=== PATIENT | female | born 1985 | race Hispanic/Latino ===

== ENCOUNTER 2020-07-23 11:39 | Emergency (ER) | payer SELFPAY ==
[2020-07-23 15:48] LABS: Absolute Lymphocytes (CBC) 1.8 K/uL (0.7-4.9); Basophils % 1.2 % (0-1.3); Hematocrit 20.9 % (36.0-45.0); Lymphocytes % 34.3 % (15.3-44.8); MPV 9.1 fL (7.6-11.3); RBC Red Blood Cell Count 3.06 M/uL (3.86-4.86)
--- NOTE | 2020-07-23 15:56 | RAD REPORT ---
EXAM DESCRIPTION: US - Pelvis Complete - 07/23/2020 3:26 pm CLINICAL HISTORY: VAGINAL BLEEDING Pelvic pain. COMPARISON: No comparisons FINDINGS: The uterus appears enlarged measuring 13.5 x 8.5 cm. There is a large circumscribed mass s een in the fundal region of the uterus measuring 6.4 x 6.3 x 5.9 cm, likely representing a fibroid. The endometrial stripe is thin. Both ovaries are normal in size, shape and echotexture. The right ovary measures 3.3 x 2.8 x 2.0 cm. The left ovary measures 3.1 x 3.1 x 3.0 cm. No ovarian or parovarian lesions. No adnexal masses. Normal Doppler blood flow was demonstrated to both ovaries. No significant pelvic ascites. IMPRESSION: Large circumscribed 6.4 cm mass is seen in the fundal region the uterus suspected repres ent a large submucosal fibroid.
[2020-07-23 16:05] LABS: ALT/SGPT 24 U/L (12-78); AST/SGOT 14 U/L (15-37); Alkaline Phosphatase 67 U/L (45-117); BUN Blood Urea Nitrogen 9 mg/dL (7-18); Bicarbonate 24 mmol/L (21-32); Bilirubin Total 0.3 mg/dL (0.2-1.0); Glucose Level 80 mg/dL (74-106); Potassium 3.5 mmol/L (3.5-5.1); Sodium Level 142 mmol/L (136-145)
[2020-07-23 16:18] LABS: Blood Morphology Comment NOTED (NOT SEEN); Hypochromasia 1+; Platelet Estimate ADEQ; White Blood Cell Scan OK (OK)
[2020-07-23] MEDS ORDERED: NA CHLORIDE 0.9% 250 ML ONE (17:30)
[2020-07-23] MEDS ORDERED: Ringers Lactate 1,000 ML IV ONE (19:10)
--- NOTE | 2020-07-23 20:32 | ER ---
Nurse's Notes [facility] Name: Katie Osorio Age: 35 yrs Sex: Female : 1985 Arrival Date: 07/23/2020 Time: 11:44 Bed 13 Private MD: Diagnosis: Abnormal uterine and vaginal bleeding, unspecified;Anemia, unspecified Presentation: 07/23 12:00 Chief complaint: Sent by PCP for H\T\H 6.5/23.0. Pt c/o headache and dizziness x 1 week. hb Coronavirus screen: At this time, the client does not indicate any symptoms associated with coronavirus-19. Ebola Screen: No symptoms or risks identified at this time. Initial Sepsis Screen: Does the patient meet any 2 criteria? No. Patient's initial sepsis screen is negative. Does the patient have a suspected source of infection? No. Patient's initial sepsis screen is negative. Risk Assessment: Do you want to hurt yourself or someone else? Patient reports no desire to harm self or others. Onset of symptoms was July 17, 2020. 12:00 Method Of Arrival: Ambulatory hb 12:00 Acuity: CHRIS 3 hb Triage Assessment: 14:30 General: Appears in no apparent distress. comfortable, Behavior is cooperative, bp appropriate for age, anxious. Pain: Complains of pain in head. EENT: No deficits noted. Neuro: Level of Consciousness is awake, alert, obeys commands, Oriented to Appropriate for age. Cardiovascular: Rhythm is sinus rhythm. Respiratory: No deficits noted. GI: No signs and/or symptoms were reported involving the gastrointestinal system. : No signs and/or symptoms were reported regarding the genitourinary system. Derm: No deficits noted. Musculoskeletal: No deficits noted. Historical: - Allergies: 12:02 PENICILLINS; hb - Immunization history:: Adult Immunizations. - Social history:: Smoking status: Patient denies any tobacco usage or history of. Screenin:30 Abuse screen: Denies threats or abuse. Denies injuries from another. Nutritional bp screening: No deficits noted. Tuberculosis screening: No symptoms or risk factors identified. Fall Risk None identified. Assessment: 14:30 General: SEE TRIAGE NOTE. bp 15:30 Reassessment: No changes from previously documented assessment. Patient and/or family bp updated on plan of care and expected duration. Pain level reassessed. Patient is alert, oriented x 3, equal unlabored respirations, skin warm/dry/pink. 16:30 Reassessment: No changes from previously documented assessment. Patient and/or family bp updated on plan of care and expected duration. Pain level reassessed. Patient is alert, oriented x 3, equal unlabored respirations, skin warm/dry/pink. RESULTS PENDING FOR DISPO. 17:15 Reassessment: PRBC TRANSFUSION CONSENT SIGNED AND WITNESSED. PT ON OIL SCOUT WITH bp NIBP AND CONTINUOUS SP02. 20:00 General: Appears in no apparent distress. comfortable, Behavior is calm, cooperative. sf Neuro: No deficits noted. Cardiovascular: No deficits noted. Respiratory: No deficits noted. GI: No deficits noted. : No deficits noted. Derm: No deficits noted. Musculoskeletal: No deficits noted. Vital Signs: 12:00 BP 110 / 65; Pulse 77; Resp 16; Temp 97.8; Pulse Ox 100% ; Pain 7/10; hb 16:30 BP 94 / 55; Pulse 77; Resp 17; Pulse Ox 100% ; bp 17:15 BP 100 / 50; Pulse 87; Resp 15; Temp 98.7; Pulse Ox 100% ; bp 18:00 BP 103 / 51; Pulse 77; Resp 18; Temp 98.7; Pulse Ox 100% ; bp 20:00 BP 104 / 53; Pulse 80; Resp 16; Pulse Ox 100% ; sf ED Course: 11:44 Patient arrived in ED. mr 12:01 Triage completed. hb 14:28 Syed Mayorga, EITAN is Primary Nurse. bp 14:29 Ovidio Dai PA is PHCP. jmm 14:29 Devonte Rolle MD is Attending Physician. jmm 14:30 Arm band placed on. bp 15:26 US Pelvis Complete In Process Unspecified. EDMS 15:30 No provider procedures requiring assistance completed. Inserted saline lock: 20 gauge bp in right antecubital area, using aseptic technique. 16:27 CBC with Diff Sent. bp 16:27 CMP Sent. bp 16:27 Type And Screen Sent. bp 16:30 Patient has correct armband on for positive identification. Bed in low position. Call bp light in reach. Side rails up X2. 20:43 IV discontinued, intact, bleeding controlled, No redness/swelling at site. Pressure sf dressing applied. Administered Medications: 18:50 Drug: Lactated Ringers Solution 1000 ml Route: IV; Rate: 1000 bolus; Site: right bp antecubital; 19:46 Follow up: Response: No adverse reaction; IV Status: Completed infusion; IV Intake: sf 1000ml Intake: 19:46 IV: 1000ml; Total: 1000ml. sf Outcome: 20:32 Discharge ordered by MD. ware 20:44 Discharged to home ambulatory. sf 20:44 Condition: good 20:44 Discharge instructions given to patient, family, Instructed on discharge instructions, follow up and referral plans. Demonstrated understanding of instructions, follow-up care. 20:44 Patient left the ED. sf Signatures: Dispatcher [employer] EDMS Ovidio Dai PA PA jmm Rivera, Mary mr Baxter, Heather, RN RN Syed Gonzalez, EITAN RN bp Manoj Sheridan RN RN sf
--- NOTE | 2020-07-23 20:32 | EDPHYS ---
Physician Documentation [facility] Name: Katie Osorio Age: 35 yrs Sex: Female : 1985 Arrival Date: 07/23/2020 Time: 11:44 Bed 13 Private MD: ED Physician Devonte Rolle HPI: 07/23 14:41 This 35 yrs old Female presents to ER via Ambulatory with complaints of jmm Abnormal Lab Results. 14:41 The patient presents with vaginal bleeding that is. Onset: The symptoms/episode jmm began/occurred 1 year(s) ago. Modifying factors: The symptoms are alleviated by nothing, the symptoms are aggravated by nothing. This is a 35 year old female with no known medical conditions that presents to the ED with complaints of headache, dizziness, weakness which has been ongoing for over a week. Denies fever. Patient states her cycles last for 15 days at a time and is currently bleeding a small amount. Outpatient labs were ordered revealing the patient is anemic. They have an appoint scheduled for this Sunday for [employer] consultation. . Historical: - Allergies: 12:02 PENICILLINS; hb - Immunization history:: Adult Immunizations. - Social history:: Smoking status: Patient denies any tobacco usage or history of. ROS: 14:41 Cardiovascular: Negative for chest pain, palpitations, and edema, Respiratory: Negative jmm for shortness of breath, cough, wheezing, and pleuritic chest pain, Abdomen/GI: Negative for abdominal pain, nausea, vomiting, diarrhea, and constipation. 14:41 Constitutional: Positive for fatigue. 14:41 : Positive for vaginal bleeding. 14:41 Neuro: Positive for weakness. 14:41 All other systems are negative. Exam: 14:41 Constitutional: This is a well developed, well nourished patient who is awake, alert, jmm and in no acute distress. Head/Face: atraumatic. Eyes: EOMI, no conjunctival erythema appreciated ENT: Moist Mucus Membranes Neck: Trachea midline, Supple Chest/axilla: Normal chest wall appearance and motion. Cardiovascular: Regular rate and rhythm. No edema appreciated Respiratory: Normal respirations, no respiratory distress appreciated Abdomen/GI: Non distended, soft Back: Normal ROM Skin: General appearance color normal MS/ Extremity: Moves all extremities, no obvious deformities appreciated, no edema noted to the lower extremities Neuro: Awake and alert, normal gait Psych: Behavior is normal, Mood is normal, Patient is cooperative and pleasant Vital Signs: 12:00 BP 110 / 65; Pulse 77; Resp 16; Temp 97.8; Pulse Ox 100% ; Pain 7/10; hb 16:30 BP 94 / 55; Pulse 77; Resp 17; Pulse Ox 100% ; bp 17:15 BP 100 / 50; Pulse 87; Resp 15; Temp 98.7; Pulse Ox 100% ; bp 18:00 BP 103 / 51; Pulse 77; Resp 18; Temp 98.7; Pulse Ox 100% ; bp 20:00 BP 104 / 53; Pulse 80; Resp 16; Pulse Ox 100% ; sf MDM: 14:32 Patient medically screened. [facility] 20:30 Data reviewed: vital signs, nurses notes. Counseling: I had a detailed discussion with jeanie the patient and/or guardian regarding: the historical points, exam findings, and any diagnostic results supporting the discharge/admit diagnosis, lab results, radiology results, the need for outpatient follow up, to return to the emergency department if symptoms worsen or persist or if there are any questions or concerns that arise at home. ED course: Patient is alert and non toxic in appearance in the ED. States having mild symptom relief. Patient was given strict return precautions. Patient understood and agrees with the plan of care. . 07/23 14:38 Order name: CBC with Diff [facility] 07/23 14:38 Order name: CMP [facility] 07/23 14:38 Order name: Type And Screen [facility] 07/23 14:39 Order name: CBC with Automated Diff; Complete Time: 16:29 [facility] 07/23 14:39 Order name: Comprehensive Metabolic Panel; Complete Time: 16:29 [facility] 07/23 14:39 Order name: Type and Screen [facility] 07/23 14:39 Order name: US Pelvis Complete; Complete Time: 15:56 [facility] 07/23 16:18 Order name: CBC Smear Scan; Complete Time: 16:29 [facility] 07/23 16:23 Order name: Packed RBC Leukored [facility] 07/23 16:41 Order name: ABO/RH no charge; Complete Time: 16:42 [facility] 07/23 14:39 Order name: Saline Lock; Complete Time: 16:17 [facility] 07/23 14:39 Order name: EKG - Nurse/Tech; Complete Time: 16:17 [facility] Administered Medications: 18:50 Drug: Lactated Ringers Solution 1000 ml Route: IV; Rate: 1000 bolus; Site: right antecubital; 19:46 Follow up: Response: No adverse reaction; IV Status: Completed infusion; IV Intake: sf 1000ml Disposition: 07/23/20 20:32 Discharged to Home. Impression: Abnormal uterine and vaginal bleeding, unspecified, Anemia, unspecified. - Condition is Stable. - Discharge Instructions: Abnormal Uterine Bleeding, Iron Deficiency Anemia, Adult, Uterine Fibroids. - Medication Reconciliation Form, Thank You Letter, Antibiotic Education, Prescription Opioid Use form. - Follow up: Private Physician; When: 2 - 3 days; Reason: Recheck today's complaints, Continuance of care, Re-evaluation by your physician. Addendum: 07/25/2020 08:15 Co-signature as Attending Physician, Devonte Rolle MD I agree with the assessment and c lutz plan of care. Signatures: Dispatcher [employer] [facility] Devonte Rolle MD MD cha Mickail, Joel, PA PA Marie Darnell, RN RN Syed Mayorga RN RN Manoj Sheridan RN RN sf Corrections: (The following items were deleted from the chart) 07/23 16:24 15:59 PACKED RBC LEUKORED -1+BB.LAB.BRZ ordered. [facility] 16:24 16:00 ABO/RH typing ordered. [facility] 16:24 16:00 Antibody Screen ordered. [facility] 20:44 20:32 07/23/2020 20:32 Discharged to Home. Impression: Abnormal uterine and vaginal sf bleeding, unspecified; Anemia, unspecified. Condition is Stable. Forms are Medication Reconciliation Form, Thank You Letter, Antibiotic Education, Prescription Opioid Use. Follow up: Private Physician; When: 2 - 3 days; Reason: Recheck today's complaints, Continuance of care, Re-evaluation by your physician. angelia
[2020-07-23 20:51] VITALS: O2SAT 100
[2020-07-23 20:54] VITALS: TEMP 98.7
[2020-07-23 20:57] VITALS: BP 104/53
--- NOTE | 2020-07-26 10:52 | EKG ---
Test Date: 2020-07-23 Test Time: 15:31:51 Patrol Officer: BP MEASUREMENT RESULTS: Intervals: Rate: 76 CO: 120 QRSD: 80 QT: 384 QTc: 432 [place]: P: 27 CO: 120 QRS: 4 T: -5 INTERPRETIVE STATEMENTS: Normal sinus rhythm with sinus arrhythmia Nonspecific ST and T wave abnormality Abnormal ECG No previous ECG available for comparison Electronically Signed On 07-26-20 10:47:13 CDT by Dk Cohen
== END 2020-07-23 20:44 | disposition home or self-care (01) ==
LOC: ER 11:39
DX: N93.9 Abnormal uterine and vaginal bleeding, unspecified (principal); D64.9 Anemia, unspecified
CPT/HCPCS: 36415; 76856; 80053; 85025; 86850; 86900; 86901; 93005; 96360; 99284; J7050; J7120; P9016